=== PATIENT | female | born 1990 | race Hispanic/Latino ===

== ENCOUNTER 2018-04-05 14:02 | Outpatient (CLI) | payer MEDICAID ==
--- NOTE | 2018-04-05 15:20 | XRay Report ---
ROUTINE CHEST, TWO VIEWS: HISTORY: Cough. The trachea, heart, mediastinal contour, lung garcia and bony thorax are unremarkable. IMPRESSION: Unremarkable chest x-ray.
== END 2018-04-05 14:03 | disposition home or self-care (01) ==
LOC: XRAY 14:02
PROVIDERS: ATTEND Internal Medicine
DX: R05 Cough (principal)
CPT/HCPCS: 71046